=== PATIENT | male | born 2000 | race Caucasian/White ===

== ENCOUNTER 2024-03-20 16:52 | Emergency (ER) | payer MEDICAID ==
[~2024-03-20] VITALS: Ht 165.1 cm; Wt 54.6 kg
[2024-03-20 17:15] LABS: STREP A SCREEN NEGATIVE (Neg)
[2024-03-20 19:02] VITALS: BP 122/65; PULSE 65; RESP 16; TEMP 98.3; O2SAT 98
== END 2024-03-20 19:03 | disposition home or self-care (01) ==
LOC: ER 16:53
DX: J39.2 Other diseases of pharynx (principal); J02.9 Acute pharyngitis, unspecified
CPT/HCPCS: 87081; 87880; 99283